=== PATIENT | male | born 1960 | race Caucasian/White ===

== ENCOUNTER 2018-03-10 09:07 | Outpatient (CLI) | payer MEDICARE, MEDICAID | END 2018-03-10 23:59 | disposition home or self-care (01) | LOC: RT 09:07 | PROVIDERS: ATTEND Internal Medicine | DX: J84.89 Other specified interstitial pulmonary diseases (principal); E78.5 Hyperlipidemia, unspecified; D89.89 Other specified disorders involving the immune mechanism, not elsewhere classified; Z79.82 Long term (current) use of aspirin | CPT/HCPCS: 94618 ==